=== PATIENT | female | born 1960 | race Caucasian/White ===

== ENCOUNTER → 2016-12-17 | Outpatient (CLI) | payer BC ==
--- NOTE | 2016-12-17 13:45 | EST ---
DATE OF SERVICE: 12/17/2016 AGE: 56Y SEX: F HT: 72" WT: 300 lbs. Protocol Jonathan: X Other: Stress Stage: III Dur. of Exercise: 6:20 *Heart Rate Blood Pressure *Rest: 82 Rest: 141/77 * *Max. Achieved: 150 Maximum BP: 196/76 85% PMHR: 138 100% PMHR: 162 *METS: 5.3 INDICATIONS: Chest pain. MEDICATIONS: - Patient was exercised for a total period of 6 minutes and 20 seconds. Peak heart rate of 150 was achieved. Maximum blood pressure of 196/76 mmHg was noted. Resting EKG shows normal sinus rhythm with normal AK interval and QRS duration and normal ST-T waves. No ST segment depression suggestive of ischemia was noted. Occasional PVCs were noted. FINAL IMPRESSION: 1. This exercise test is not suggestive of ischemia. 2. Patient's exercise tolerance is normal. 3. Occasional premature ventricular contractions were noted.
== END | disposition home or self-care (01) ==
LOC: RADNMMAIN 10:22
PROVIDERS: ATTEND Family Medicine
DX: I49.3 Ventricular premature depolarization (principal)
CPT/HCPCS: 93017

== ENCOUNTER 2018-02-01 02:48 | Emergency (ER) | payer BC ==
[2018-02-01] MEDS ORDERED: RX INFO: IV CONTRAST WAS GIVEN 1 EACH MISC MISCELLANE PRN (02:57)
[2018-02-01] MEDS ORDERED: ONDANSETRON 4 MG/2 ML VIAL IVP STA (02:58)
[2018-02-01] MEDS ORDERED: MORPHINE SULFATE 4MG/4ML SYRG IVP STA (02:58)
--- NOTE | 2018-02-01 03:01 | ED ---
Abdominal Pain HPI - General Chief Complaint: Abdominal Pain Stated Complaint: Abd pain, vomiting Time Seen by Provider: 02/01/18 02:53 Source: patient Mode of arrival: ambulatory Limitations: no limitations - History of Present Illness Initial Comments: 57-year-old female patient presents to the emergency department today for complaints of abdominal and back pain. Patient states the pain started around 3 PM yesterday afternoon to the right flank. Patient states that it progressively got worse and now encompasses the entire back and abdomen. Patient states that she has been vomiting since midnight. Reports several episodes of vomiting. She denies any hematemesis. She denies any constipation or diarrhea with this. Denies any fevers or chills. Patient denies any history of tobacco use, alcohol use or drug use. Denies any hematuria, dysuria , urinary frequency, urinary urgency. Denies any history of abdominal surgeries. States she has never had pain like this before. Patient denies any recent rash, shortness breath, chest pain, numbness, tingling, dizziness, weakness, hematuria, dysuria, urinary urgency, urinary frequency, headache, visual changes, or any other complaints. - Related Data Home Medications Medication Instructions Recorded Confirmed Melatonin 6 mg PO HS 08/19/14 08/20/14 Magnesium 1 tab PO DAILY 08/20/14 08/20/14 Previous Rx's Medication Instructions Recorded Acetaminophen with Codeine 1 - 2 each PO Q6HR PRN #60 tab 08/20/14 [Tylenol w/codeine #3] Ondansetron [Zofran ODT] 4 mg PO Q8HR PRN #10 tab 02/01/18 Allergies Allergy/AdvReac Type Severity Reaction Status Date / Time No Known Allergies Allergy Verified 02/01/18 02:52 Review of Systems ROS Statement: Those systems with pertinent positive or pertinent negative responses have been documented in the HPI. ROS Other: All systems not noted in ROS Statement are negative. Past Medical History Past Medical History: No Reported History History of Any Multi-Drug Resistant Organisms: None Reported Past Surgical History: Orthopedic Surgery Additional Past Surgical History / Comment(s): left knee. Past Anesthesia/Blood Transfusion Reactions: No Reported Reaction Past Psychological History: No Psychological Hx Reported Smoking Status: Never smoker Past Alcohol Use History: None Reported Past Drug Use History: None Reported General Exam Limitations: no limitations General appearance: alert, in no apparent distress, other (This is a well- developed, well-nourished adult female patient in no acute distress. Vital signs upon presentation are temperature 98.1F, pulse 82, respirations 16, blood pressure 138/84, pulse ox 94% on room air.) Eye exam: Present: normal appearance, PERRL, EOMI. Absent: scleral icterus, conjunctival injection, periorbital swelling ENT exam: Present: normal exam, normal oropharynx, mucous membranes moist Respiratory exam: Present: normal lung sounds bilaterally. Absent: respiratory distress, wheezes, rales, rhonchi, stridor Cardiovascular Exam: Present: regular rate, normal rhythm, normal heart sounds. Absent: systolic murmur, diastolic murmur, rubs, gallop, clicks GI/Abdominal exam: Present: soft, normal bowel sounds. Absent: distended, tenderness, guarding, rebound, rigid Back exam: Absent: CVA tenderness (R), CVA tenderness (L) Neurological exam: Present: alert, oriented X3, CN II-XII intact Psychiatric exam: Present: normal affect, normal mood Skin exam: Present: warm, dry, intact, normal color. Absent: rash Course Vital Signs 02/01/18 02/01/18 02:49 04:13 Temperature 98.1 F 98.5 F Pulse Rate 82 78 Respiratory 16 18 Rate Blood Pressure 138/84 166/78 O2 Sat by Pulse 94 L 96 Oximetry Medical Decision Making - Medical Decision Making 57-year-old female patient presented to the emergency department today for complaints of abdominal pain, back pain, and vomiting. Physical examination was unremarkable. Patient had a soft and nontender abdomen. Labs reviewed and are unremarkable. Urinalysis was negative. CT of the abdomen and pelvis was obtained and did show some mild constipation however no other acute abnormalities were identified. Patient is feeling somewhat better after receiving antiemetics and pain medication in the emergency department. We did discuss possibility of gastroenteritis or food poisoning as a cause of her symptoms. She will be given a prescription for Zofran and a starter pack of Zofran for home. Return parameters were discussed in detail. She is instructed to follow-up with her primary care physician for recheck as soon as possible. She verbalizes understanding and agrees with this plan. - Lab Data Result diagrams: 02/01/18 03:05 02/01/18 03:05 Lab Results 02/01/18 02/01/18 02/01/18 Range/Units 03:05 03:05 03:05 WBC 10.1 (3.8-10.6) k/uL RBC 4.87 (3.80-5.40) m/uL Hgb 13.8 (11.4-16.0) gm/dL Hct 41.2 (34.0-46.0) % MCV 84.5 (80.0-100.0) fL MCH 28.4 (25.0-35.0) pg MCHC 33.6 (31.0-37.0) g/dL RDW 13.5 (11.5-15.5) % Plt Count 220 (150-450) k/uL Neutrophils % 80 % Lymphocytes % 13 % Monocytes % 4 % Eosinophils % 1 % Basophils % 0 % Neutrophils # 8.2 H (1.3-7.7) k/uL Lymphocytes # 1.3 (1.0-4.8) k/uL Monocytes # 0.5 (0-1.0) k/uL Eosinophils # 0.1 (0-0.7) k/uL Basophils # 0.0 (0-0.2) k/uL PT (9.0-12.0) sec INR (<1.2) APTT (22.0-30.0) sec Sodium 139 (137-145) mmol/L Potassium 4.3 (3.5-5.1) mmol/L Chloride 101 (98-107) mmol/L Carbon Dioxide 26 (22-30) mmol/L Anion Gap 12 mmol/L BUN 17 (7-17) mg/dL Creatinine 0.80 (0.52-1.04) mg/dL Est GFR (CKD-EPI)AfAm >90 (>60 ml/min/1.73 sqM) Est GFR (CKD-EPI)NonAf 81 (>60 ml/min/1.73 sqM) Glucose 144 H (74-99) mg/dL Plasma Lactic Acid Jr (0.7-2.0) mmol/L Calcium 9.4 (8.4-10.2) mg/dL Total Bilirubin 0.3 (0.2-1.3) mg/dL AST 27 (14-36) U/L ALT 30 (9-52) U/L Alkaline Phosphatase 98 (38-126) U/L Total Creatine Kinase 60 (30-135) U/L CK-MB (CK-2) 0.7 (0.0-2.4) ng/mL CK-MB (CK-2) Rel Index 1.2 Troponin I <0.012 (0.000-0.034) ng/mL Total Protein 6.5 (6.3-8.2) g/dL Albumin 3.8 (3.5-5.0) g/dL Amylase 69 (30-110) U/L Lipase 106 (23-300) U/L Urine Color Urine Appearance (Clear) Urine pH (5.0-8.0) Ur Specific Perry (1.001-1.035) Urine Protein (Negative) Urine Glucose (UA) (Negative) Urine Ketones (Negative) Urine Blood (Negative) Urine Nitrite (Negative) Urine Bilirubin (Negative) Urine Urobilinogen (<2.0) mg/dL Ur Leukocyte Esterase (Negative) Urine RBC (0-5) /hpf Urine WBC (0-5) /hpf Ur Squamous Epith Cells (0-4) /hpf Urine Mucus (None) /hpf 02/01/18 02/01/18 02/01/18 Range/Units 03:05 03:05 03:55 WBC (3.8-10.6) k/uL RBC (3.80-5.40) m/uL Hgb (11.4-16.0) gm/dL Hct (34.0-46.0) % MCV (80.0-100.0) fL MCH (25.0-35.0) pg MCHC (31.0-37.0) g/dL RDW (11.5-15.5) % Plt Count (150-450) k/uL Neutrophils % % Lymphocytes % % Monocytes % % Eosinophils % % Basophils % % Neutrophils # (1.3-7.7) k/uL Lymphocytes # (1.0-4.8) k/uL Monocytes # (0-1.0) k/uL Eosinophils # (0-0.7) k/uL Basophils # (0-0.2) k/uL PT 9.7 (9.0-12.0) sec INR 1.0 (<1.2) APTT 24.6 (22.0-30.0) sec Sodium (137-145) mmol/L Potassium (3.5-5.1) mmol/L Chloride (98-107) mmol/L Carbon Dioxide (22-30) mmol/L Anion Gap mmol/L BUN (7-17) mg/dL Creatinine (0.52-1.04) mg/dL Est GFR (CKD-EPI)AfAm (>60 ml/min/1.73 sqM) Est GFR (CKD-EPI)NonAf (>60 ml/min/1.73 sqM) Glucose (74-99) mg/dL Plasma Lactic Acid Jr 1.3 (0.7-2.0) mmol/L Calcium (8.4-10.2) mg/dL Total Bilirubin (0.2-1.3) mg/dL AST (14-36) U/L ALT (9-52) U/L Alkaline Phosphatase (38-126) U/L Total Creatine Kinase (30-135) U/L CK-MB (CK-2) (0.0-2.4) ng/mL CK-MB (CK-2) Rel Index Troponin I (0.000-0.034) ng/mL Total Protein (6.3-8.2) g/dL Albumin (3.5-5.0) g/dL Amylase (30-110) U/L Lipase (23-300) U/L Urine Color Yellow Urine Appearance Clear (Clear) Urine pH 6.0 (5.0-8.0) Ur Specific Perry 1.035 (1.001-1.035) Urine Protein Negative (Negative) Urine Glucose (UA) Negative (Negative) Urine Ketones Negative (Negative) Urine Blood Negative (Negative) Urine Nitrite Negative (Negative) Urine Bilirubin Negative (Negative) Urine Urobilinogen <2.0 (<2.0) mg/dL Ur Leukocyte Esterase Trace H (Negative) Urine RBC 1 (0-5) /hpf Urine WBC 2 (0-5) /hpf Ur Squamous Epith Cells 2 (0-4) /hpf Urine Mucus Rare H (None) /hpf - EKG Data -: EKG Interpreted by Pa EKG Comments: EKG obtained at 0303 shows normal sinus rhythm, ventricular rate 72, TX interval 180, QRS duration 84, QTC 406, QTc 444. No evidence of ST elevation or depression. - Radiology Data Radiology results: report reviewed, image reviewed CT of the abdomen and pelvis was obtained with contrast. Report was reviewed in its entirety. Impression by Dr. Cook shows retained fecal material in the right colon. Consistent with some degree of constipation. Renal parapelvic cyst. No evidence of renal mass or obstruction. Gallbladder is relatively large but not dilated ducts. This could relate to fasting. Hiatal hernia. Disposition Clinical Impression: Abdominal pain, Vomiting Disposition: HOME SELF-CARE Condition: Good Instructions: Acute Nausea and Vomiting (ED), Abdominal Pain (ED) Additional Instructions: Take medications as directed. Start with a clear liquid diet and advance as tolerated. Follow-up with your primary care physician for recheck as soon as possible. Return here immediately for any new, worsening, or concerning symptoms. Prescriptions: Ondansetron [Zofran ODT] 4 mg PO Q8HR PRN #10 tab PRN Reason: Nausea Referrals: Pollo Segovia MD [Primary Care Provider] - 1-2 days Time of Disposition: 04:20
[2018-02-01 03:19] LABS: Basophils % (A) 0 %; Eosinophils # (A) 0.1 k/uL (0-0.7); Eosinophils % (A) 1 %; HCT 41.2 % (34.0-46.0); HGB 13.8 gm/dL (11.4-16.0); Lymphocytes # (A) 1.3 k/uL (1.0-4.8); Lymphocytes % (A) 13 %; MCH 28.4 pg (25.0-35.0); MCHC 33.6 g/dL (31.0-37.0); MCV 84.5 fL (80.0-100.0); Mean Platelet Volume 7.1; Monocytes # (A) 0.5 k/uL (0-1.0); Monocytes % (A) 4 %; Neutrophils # (A) 8.2 k/uL (1.3-7.7); Neutrophils % (A) 80 %; Platelet Count 220 k/uL (150-450); RBC 4.87 m/uL (3.80-5.40); RDW 13.5 % (11.5-15.5); WBC 10.1 k/uL (3.8-10.6)
[2018-02-01 03:28] LABS: Partial Thromboplastin Time 24.6 sec (22.0-30.0); Prothrombin Time 9.7 sec (9.0-12.0)
[2018-02-01 03:34] LABS: ALT 30 U/L (9-52); AST 27 U/L (14-36); Albumin 3.8 g/dL (3.5-5.0); Alkaline Phosphatase 98 U/L (38-126); Amylase 69 U/L (30-110); Anion Gap 12 mmol/L; Blood Urea Nitrogen 17 mg/dL (7-17); Calcium 9.4 mg/dL (8.4-10.2); Carbon Dioxide 26 mmol/L (22-30); Chloride 101 mmol/L (98-107); Glucose 144 mg/dL (74-99); Lipase 106 U/L (23-300); Potassium 4.3 mmol/L (3.5-5.1); Sodium 139 mmol/L (137-145); Total Bilirubin 0.3 mg/dL (0.2-1.3); Total Protein 6.5 g/dL (6.3-8.2)
[2018-02-01 03:44] LABS: Creatine Kinase 60 U/L (30-135)
[2018-02-01 03:58] LABS: Creatine Kinase MB 0.7 ng/mL (0.0-2.4); Troponin I <0.012 ng/mL (0.000-0.034)
--- NOTE | 2018-02-01 04:03 | CT ---
EXAMINATION TYPE: CT abdomen pelvis w con DATE OF EXAM: 02/01/2018 COMPARISON: NONE HISTORY: Nauesa, vomiting CT DLP: 2361.90 mGycm Automated exposure control for dose reduction was used. TECHNIQUE: Helical acquisition of images was performed from the lung bases through the pelvis. CONTRAST: Performed without Oral Contrast and with IV Contrast, patient injected with 100 mL of Isovue 300. FINDINGS: Lung bases are clear of consolidation. There is a hiatal hernia. There is no pericardial effusion. Th ere is no pleural effusion. Liver spleen pancreas appear normal. Bile ducts are not dilated. Gallbladder is large and measures 4. 2 cm. There is no adrenal mass. There are bilateral renal parapelvic cysts. I see no discrete renal mass. T here is no hydronephrosis. There is no retroperitoneal adenopathy. I see no intestinal wall thickening. There are no dilated loops. There is retained fecal material in the right colon. There is no ascites. There is no sign of free air. Bladder distends smoothly. I see no sign of a pelvic mass. Uterus is anteverted. There is narrowing a t L5-S1 disc space with a mild first-degree L5-S1 spondylolisthesis. There is no compression fracture . Appendix appears normal. IMPRESSION: RETAINED FECAL MATERIAL IN THE RIGHT: CONSISTENT WITH SOME DEGREE OF CONSTIPATION. RENAL PARAPELVIC C YSTS. NO EVIDENCE OF RENAL MASS OR OBSTRUCTION. GALLBLADDER IS RELATIVELY LARGE BUT NO DILATED DUCTS. THIS COULD RELATE TO FASTING. HIATAL HERNIA.
[2018-02-01] MEDS ORDERED: ONDANSETRON ODT 4 MG TAB PO STA (04:05)
[2018-02-01 04:14] VITALS: BP 166/78; PULSE 78; RESP 18; TEMP 98.5
[2018-02-01 04:20] LABS: Appearance,Urine Clear (Clear); Bilirubin,Urine Negative (Negative); Blood,Urine Negative (Negative); Color,Urine Yellow; Glucose,Urine (UA) Negative (Negative); Ketones,Urine Negative (Negative); Leukocyte Esterase,Urine Trace (Negative); Mucus,Urine Rare /hpf; Nitrite,Urine Negative (Negative); Protein,Urine Negative (Negative); RBC,Urine 1 /hpf (0-5); Specific Gravity,Urine 1.035 (1.001-1.035); Squamous Epithelial Cell,Urine 2 /hpf (0-4); Urobilinogen,Urine <2.0 mg/dL (<2.0); WBC,Urine 2 /hpf (0-5)
[2018-02-01] MEDS ORDERED: ONDANSETRON 4 MG ODT STARTER PACK 2 TAB BTL PO STA (04:22)
== END 2018-02-01 04:28 | disposition home or self-care (01) ==
LOC: EC 02:48
DX: R10.9 Unspecified abdominal pain (principal); R11.10 Vomiting, unspecified; K59.00 Constipation, unspecified; N28.1 Cyst of kidney, acquired; K44.9 Diaphragmatic hernia without obstruction or gangrene; M54.9 Dorsalgia, unspecified; Z79.899 Other long term (current) drug therapy
CPT/HCPCS: 36415; 93005; 80053; 82150; 82550; 82553; 83605; 83690; 84484; 85025; 85610; 85730; 81001; 74177; 99284; 96374; 96375; J2405; S0119; Q9967; J2270

== ENCOUNTER 2018-04-18 07:50 | Day surgery (SDC) | payer BC ==
[2018-04-14 14:37] VITALS: BMI 39.4
[~2018-04-18 07:50] MED LIST: HEPARIN SODIUM,PORCINE 5,000 UNIT/ML 1 ML VIAL SQ ONE
[2018-04-18] MEDS ORDERED: LIDOCAINE 1% 20 ML VIAL (10MG/ML) FOR IV START INTRADERMA ONE (08:33)
[2018-04-18] MEDS ORDERED: LACTATED RINGERS 1,000 ML IV ONE ×2 (08:33→10:46)
[2018-04-18] MEDS ORDERED: ONDANSETRON 4 MG/2 ML VIAL IVP ONE ×2 (08:34→10:41)
[2018-04-18] MEDS ORDERED: DEXAMETHASONE SOD PHOSPHATE 10 MG/ML 1 ML VIAL IV ONE (08:34)
[2018-04-18] MEDS ORDERED: SCOPOLAMINE 1.5MG/72HR PATCH TRANSDERM ONE (08:34)
--- NOTE | 2018-04-18 08:45 | P.GSHP ---
History of Present Illness H&P Date: 04/18/18 Chief Complaint: Right upper quadrant pain This a 57-year-old female who presents today for laparoscopic cholestatic. Patient has had complaints of abdominal pain. Her recent CAT scan shows evidence of a large dilated gallbladder suggestive chronic cholecystitis. Past Medical History Past Medical History: No Reported History Additional Past Medical History / Comment(s): gallstones History of Any Multi-Drug Resistant Organisms: None Reported Past Surgical History: Orthopedic Surgery Additional Past Surgical History / Comment(s): left knee arthroscopy Past Anesthesia/Blood Transfusion Reactions: No Reported Reaction Smoking Status: Never smoker - Past Family History Brother(s) Family Medical History: Cancer Additional Family Medical History / Comment(s): Renal and Lung CA Mother Family Medical History: Cancer Additional Family Medical History / Comment(s): Skin CA Medications and Allergies Home Medications Medication Instructions Recorded Confirmed Type Melatonin 6 mg PO HS 08/19/14 04/18/18 History Magnesium 1 tab PO DAILY 08/20/14 04/18/18 History Ondansetron [Zofran ODT] 4 mg PO Q8HR PRN #10 tab 02/01/18 04/18/18 Rx Cholecalciferol (Vitamin D3) 2,000 unit PO DAILY 04/14/18 04/18/18 History [Vitamin D3] Allergies Allergy/AdvReac Type Severity Reaction Status Date / Time No Known Allergies Allergy Verified 04/18/18 08:15 Surgical - Exam Vital Signs Temp Pulse Resp BP Pulse Ox 97.8 F 57 L 16 134/62 100 04/18/18 08:16 04/18/18 08:16 04/18/18 08:16 04/18/18 08:16 04/18/18 08:16 - General well developed, no distress - Eyes PERRL - ENT normal pinna - Neck no masses - Respiratory normal expansion - Cardiovascular Rhythm: regular - Abdomen Mild right upper quadrant pain Abdomen: soft Assessment and Plan Assessment: Right upper quadrant pain Chronic cholecystitis We will perform laparoscopic cholecystectomy
[2018-04-18] MEDS ORDERED: BUPIVACAINE (PF) 0.5% 30 ML VIAL SQ ONE ×2 (09:00→09:34)
[2018-04-18] MEDS ORDERED: fentaNYL (PF) 50 MCG/ML 2 ML AMP ONE (09:09)
[2018-04-18] MEDS ORDERED: MIDAZOLAM 2 MG/2 ML VIAL ONE (09:09)
[2018-04-18] MEDS ORDERED: KETOROLAC 30 MG/ML 1 ML VIAL ONE (09:09)
[2018-04-18] MEDS ORDERED: PROPOFOL 10 MG/ML 20 ML VIAL IV ONE (09:09)
[2018-04-18] MEDS ORDERED: LIDOCAINE 1% INJ 10MG/ML (20 ML MDV) ONE (09:09)
[2018-04-18] MEDS ORDERED: SUCCINYLCHOLINE CHLORIDE VIAL 200 MG/10 ML VIAL IV ONE (09:09)
[2018-04-18] MEDS ORDERED: ePHEDrine SULFATE/0.9% NACL/PF 50 MG/5 ML SYRINGE IV ONE (09:09)
[2018-04-18] MEDS ORDERED: ROCURONIUM BROMIDE 10 MG/ML 10 ML VIAL IV ONE (09:09)
[2018-04-18] MEDS ORDERED: IV FLUID CONTINUATION 1,000 ML IV ONE (10:06)
[2018-04-18 10:10] VITALS: TEMP 7.2
[2018-04-18 10:34] VITALS: RESP 18
[2018-04-18] MEDS ORDERED: HYDROmorphone 0.5 MG/0.5 ML SYRINGE IVP ONE (10:42)
[2018-04-18 10:53] VITALS: PULSE 49
[2018-04-18 11:49] VITALS: BP 134/81
--- NOTE | 2018-04-18 12:16 | P.OP ---
Date of Procedure: 04/18/18 Preoperative Diagnosis: Chronic cholecystitis Postoperative Diagnosis: Chronic cholecystitis Procedure(s) Performed: Laparoscopic cholecystectomy Anesthesia: TERRY Surgeon: Ryan Bowser Estimated Blood Loss (ml): 5 Pathology: other (Gallbladder) Condition: stable Disposition: PACU Description of Procedure: The patient was placed on the operating table. The patient received a general endotracheal tube anesthesia. The patients abdomen was prepped and draped in the usual sterile fashion. Through an infraumbilical stab incision, the fascia of the anterior abdominal wall was grasped with a pair of Kochers and then the Veress needle was placed in the peritoneal cavity. Position of the Veress needle was confirmed with positive drop test. The abdomen was then insufflated. After adequate insufflation, the 10 mm trocar was placed in the peritoneal cavity. Following this the laparoscope was placed in the peritoneal cavity. The patient was placed in the head-up, right side up position and then a 5 mm trocar was placed in the right lateral and right subcostal position under direct visualization. A 8 mm trocar was placed in the epigastric position. The gallbladder was grasped in the fundus and infundibulum. Traction on the gallbladder was placed in the lateral and the cephalad positions. The triangle of Calot was visualized.. The cystic duct was bluntly dissected until the union of the cystic duct and common bile duct was seen. The cystic duct was then divided and sealed with the Harmonic scissors. A PDS Endoloop was then placed throughout the cystic duct stump. The cystic artery divided and sealed with the Harmonic scissors. The gallbladder was then removed from the liver bed using Harmonic scissors. The gallbladder was then extracted through the epigastric port site. Operative field was checked for any bleeding spots and Harmonic scissors was used to coagulate the liver bed. The abdomen was irrigated. The trocars were removed. The skin was closed using interrupted 3-0 Vicryl suture. Dermabond dressing were applied. The patient tolerated the procedure well.
== END 2018-04-18 12:31 | disposition home or self-care (01) ==
LOC: OR 07:50
PROVIDERS: ATTEND Surgery
DX: K80.10 Calculus of gallbladder with chronic cholecystitis without obstruction (principal); Z79.899 Other long term (current) drug therapy; Z80.1 Family history of malignant neoplasm of trachea, bronchus and lung; Z80.51 Family history of malignant neoplasm of kidney; Z80.8 Family history of malignant neoplasm of other organs or systems
CPT/HCPCS: 47562; 88304; J2250; J0330; J1644; J1100; J2405; J2001; J3010; J1885; J2704; J1170

== ENCOUNTER 2020-10-21 13:29 | Emergency (ER) | payer BC ==
[2020-10-21 13:36] VITALS: RESP 18
--- NOTE | 2020-10-21 14:27 | XR ---
EXAMINATION TYPE: XR knee complete LT DATE OF EXAM: 10/21/2020 COMPARISON: None HISTORY: Pain after twisting knee TECHNIQUE: Three-view left knee FINDINGS: Patellofemoral joint space may be slightly narrowed. No joint effusion is evident. Medial t ibial plateau and medial femoral condylar spurring is present. There is mild narrowing of the medial compartment joint space. Lateral compartment joint spaces preserved. Soft tissues are normal. IMPRESSION: 1. Mild degenerative joint changes left knee. 2. No acute osseous abnormality.
--- NOTE | 2020-10-21 14:33 | ED ---
Lower Extremity Injury HPI - General Chief Complaint: Extremity Injury, Lower Stated Complaint: Left knee pain Time Seen by Provider: 10/21/20 13:38 Source: patient Mode of arrival: wheelchair Limitations: no limitations - History of Present Illness Initial Comments: 60yo female presenting for cc of left knee pain. pt states she was running yesterday when she went to turn and believes she twisted her left knee. she states it has been sore today and increases with certain movements of knee. pt states she can range and weight bear.patietn denies numbness, dislocation or loss of sensation. pt anish falling or additional areas of injury. denies ankle or hip pain. patient appears well nontoxic on arrival in no acute distress. - Related Data Home Medications Medication Instructions Recorded Confirmed Magnesium 400 mg PO DAILY 08/20/14 10/21/20 Ibuprofen [Motrin Ib] 800 mg PO Q8H PRN 10/21/20 10/21/20 Melatonin 9 mg PO HS 10/21/20 10/21/20 SILVER sulfADIAZINE Cream 1 applic TOPICAL DAILY MDD LEFT LEG 10/21/20 10/21/20 [Silvadene 1% Cream] Allergies Allergy/AdvReac Type Severity Reaction Status Date / Time No Known Allergies Allergy Verified 10/21/20 14:24 Review of Systems ROS Statement: Those systems with pertinent positive or pertinent negative responses have been documented in the HPI. ROS Other: All systems not noted in ROS Statement are negative. Past Medical History Past Medical History: No Reported History Additional Past Medical History / Comment(s): gallstones History of Any Multi-Drug Resistant Organisms: None Reported Past Surgical History: Cholecystectomy, Orthopedic Surgery Additional Past Surgical History / Comment(s): left knee arthroscopy Past Anesthesia/Blood Transfusion Reactions: No Reported Reaction Past Psychological History: No Psychological Hx Reported Smoking Status: Never smoker Past Alcohol Use History: None Reported Past Drug Use History: None Reported - Past Family History Brother(s) Family Medical History: Cancer Additional Family Medical History / Comment(s): Renal and Lung CA Mother Family Medical History: Cancer Additional Family Medical History / Comment(s): Skin CA General Exam - General Exam Comments Initial Comments: General: The patient is awake and alert, in no distress, and does not appear acutely ill. Eye: Pupils are equal, round and reactive to light, extra-ocular movements are intact. No nystagmus. There is normal conjunctiva bilaterally. No signs of icterus. Cardiovascular: There is a regular rate and rhythm. No murmur, rub or gallop is appreciated. Respiratory: Lungs are clear to auscultation, respirations are non-labored, breath sounds are equal. No wheezes, stridor, rales, or rhonchi. Musculoskeletal: Normal inspection of the knees b/l. Normal ROM, of the knees b/l discomfort with maximal ROM of the left knee. Strength 5/5 of the LE b /l. Sensation intact of the LE b/l. Radial and DP pulses equal bilaterally 2+. No laxity appreciated. extensor mechanism intact. Neurological: A&O x 3. CN II-XII intact grossly, There are no obvious motor or sensory deficits. Coordination appears grossly intact. Speech is normal. Skin: Skin is warm and dry and no rashes or lesions are noted. Psychiatric: Cooperative, appropriate mood & affect, normal judgment. Limitations: no limitations Course Vital Signs 10/21/20 10/21/20 13:30 14:57 Temperature 98.7 F 97.8 F Pulse Rate 65 79 Respiratory 18 18 Rate Blood Pressure 145/76 148/78 O2 Sat by Pulse 98 98 Oximetry Medical Decision Making - Medical Decision Making XR (-). Pt neurovascularly intact. extensor mechanism intact. can weight bear. no dislocation in history. patient will be placed in knee immobilizer and given orthopedic f/u. patient agreeable to this care plan and discharge as is attending Dr. chou' Disposition Clinical Impression: Knee sprain, Left knee pain Disposition: HOME SELF-CARE Condition: Good Instructions (If sedation given, give patient instructions): Knee Sprain (ED), R.I.C.E. Treatment (ED) Additional Instructions: Please use medication as discussed. Please follow-up with orthopedic surgery within the next week. Use knee immobilizer while ambulating. make sure youre removing and bending knee periodically throughout day to prevent stiffness while sitting at rest. Please return to emergency room if the symptoms increase or worsen or for any other concerns. Is patient prescribed a controlled substance at d/c from ED?: No Referrals: Pollo Segovia MD [Primary Care Provider] - 1-2 days Brandon Patterson DO [Doctor of Osteopathic Medicine] - 1-2 days Time of Disposition: 14:33
[2020-10-21] MEDS: ACET/COD 300 MG/30 MG STARTER PACK 6 TAB BTL PO STA (14:49)
[2020-10-21 14:59] VITALS: BP 148/78; PULSE 79; TEMP 97.8
== END 2020-10-21 14:57 | disposition home or self-care (01) ==
LOC: EC 13:29
DX: S83.92XA Sprain of unspecified site of left knee, initial encounter (principal); Z90.49 Acquired absence of other specified parts of digestive tract; X50.1XXA Overexertion from prolonged static or awkward postures, initial encounter; Y93.02 Activity, running
CPT/HCPCS: 99283

== ENCOUNTER → 2024-08-06 | Outpatient (CLI) | payer MEDICARE, BC ==
--- NOTE | 2024-08-07 07:51 | MM ---
Reason for Exam: Screening (asymptomatic). Patient History: First Full-Term at age 21. Postmenopausal. Risk Values: Day 5 year model risk: 1.4%. NCI Lifetime model risk: 5.1%. Prior Study Comparison: No prior studies available for comparison. Tissue Density: There are scattered areas of fibroglandular density. Findings: Analyzed By CAD. Right breast: There is no suspicious group of microcalcifications or new suspicious mass. Left breast: There is no suspicious group of microcalcifications or new suspicious mass. Overall Assessment: Negative, BI-RAD 1 Management: Screening Mammogram of both breasts in [address] [facility] will attempt to contact patient to return for supplemental views and ultrasound if indicated. Patient should continue monthly self-breast exams. A clinical breast exam by your physician is recommended on an annual basis. This exam should not preclude additional follow-up of suspicious palpable abnormalities. Note on Day scores and lifetime risk: 1. A Day score greater than 3% is considered moderate risk. If this is the case, consider specialist referral to assess eligibility for a risk reducing agent. 2. If overall lifetime risk for the development of breast cancer is 20% or higher, the patient may qualify for future screening with alternating mammogram and breast MRI. [facility], , 08/07/2024 7:48 AM. Electronically signed and approved by: Peter Coronado DO
--- NOTE | 2024-08-07 12:46 | BD ---
EXAMINATION TYPE: Axial Bone Density DATE OF EXAM: 08/06/2024 CLINICAL HISTORY: 63 years old Female. ICD-10 CODE: Z78.0 ASYMPTOMATIC MENOPAUSAL STA Height: 66 Weight: 249 FRAX RISK QUESTIONS: Secondary Osteoporosis: 3. Menopause before 45: at 43 RISK FACTORS HISTORY OF: MEDICATIONS: EXAM MEASUREMENTS: Bone mineral densitometry was performed using the [employer] System. Bone mineral density as measured about the Lumbar spine is: ----- L1-L4(G/cm2): 1.375 T Score Values are as follows: ----- L1: -0.3 ----- L2: -0.8 ----- L3: 0.9 ----- L4: 5.8 ----- L1-L4: 1.6 Z Score Values are as follows: ----- L1: 0.2 ----- L2: -0.3 ----- L3: 1.3 ----- L4: 6.2 ----- L1-L4: 2.1 First dexa at [facility] Bone mineral density about the R hip (g/cm2): 1.066 Bone mineral density about the L hip (g/cm2): 1.034 T Score values are as follows: -----R Neck: -0.2 -----L Neck: -0.6 -----R Total: 0.5 -----L Total: 0.2 Z Score values are as follows: -----R Neck: 0.5 -----L Neck: 0.1 -----R Total: 0.9 -----L Total: 0.6 First dexa at [facility] FRAX%s: The graph provided illustrates a 6.7% chance for a major osteoporotic fx and a 0.3% chance fo r the hips probability for fx in 10 years time. IMPRESSION: Normal (Values between +1 and -1 indicate normal bone mass). Consider repeating this study in 5 year s or sooner if there is some new clinical indication. NOTE: T-SCORE=SD OF THE YOUNG ADULT MEAN. [facility], , 08/07/2024 12:44 PM
== END | disposition home or self-care (01) ==
LOC: RADMAMWWP 14:36
PROVIDERS: ATTEND Family Medicine
DX: Z12.31 Encounter for screening mammogram for malignant neoplasm of breast (principal); R92.323 Mammographic fibroglandular density, bilateral breasts; Z78.0 Asymptomatic menopausal state
CPT/HCPCS: 77063; 77067; 77080